=== PATIENT | female | born 1995 | race Two or more races ===

== ENCOUNTER 2017-06-18 03:31 | Emergency (ER) | payer MEDICAID, OTHER ==
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
--- NOTE | 2017-06-18 17:04 | CT ---
CT facial bones Technique: Multiple axial sections through the facial bones were obtained. Reconstructed coronal and sagittal images were obtained. Comparison: No prior study. Findings: No facial bone fracture is identified. No significant mucosal thickening seen within the sinuses. No air-fluid levels are seen within the sinuses. Soft tissue swelling seen within the right cheek and overlying the right zygomatic arch. Impression: 1. Soft tissue swelling on the right side. 2. No acute facial bone fracture is seen. Diagnostic code #2 I agree with preliminary report issued by [facility] ([facility] report finalized on 06/18/17, 5:56 AM Central Time)
--- NOTE | 2017-06-18 17:04 | CT ---
Head CT Technique: Multiple axial sections through the brain were obtained. Intravenous contrast was not utilized. Comparison: Previous head CT exam of 02/21/11. Findings: Ventricles along with basal cisterns and sulci over the convexities are within normal limits for the patient's age. No abnormal parenchymal densities are seen. No evidence of intracranial hemorrhage. No midline shift or mass effect is seen. Bone window settings were reviewed and show no significant finding within the paranasal sinuses. No acute calvarial abnormality is seen. Mild soft tissue swelling identified over the right zygomatic arch. Impression: 1. Mild soft tissue swelling as noted above. No acute intracranial abnormality is seen. Diagnostic code #2 I agree with preliminary report issued by [facility] ([facility] report finalized on 06/18/17, 5:54 AM Central Time)
== END 2017-06-18 06:23 | disposition home or self-care (01) ==
LOC: JD.ED 03:31
DX: S00.83XA Contusion of other part of head, initial encounter (principal); S80.02XA Contusion of left knee, initial encounter; S40.211A Abrasion of right shoulder, initial encounter; W17.89XA Other fall from one level to another, initial encounter
CPT/HCPCS: 70450; 70450-26; 70486; 70486-26; 99284; 99284-25

== ENCOUNTER 2018-01-09 21:49 | Emergency (ER) | payer OTHER ==
--- NOTE | 2018-01-09 22:50 | EDM.PDOC ---
ED HPI GENERAL MEDICAL PROBLEM - General Chief Complaint: Body Fluid Exposure Stated Complaint: POKED WITH NEEDLE AT WORK Time Seen by Provider: 01/09/18 22:01 Source of Information: Reports: Patient History Limitations: Reports: No Limitations - History of Present Illness INITIAL COMMENTS - FREE TEXT/NARRATIVE: The patient is a 22-year-old female who sustained a needlestick while at work. 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 The needle struck her in her left palmar surface. She did have some mild bleeding after the injury. She has no idea if the needle had been used or not. She states that the last guest who stayed at the hotel room was an elderly lady who used a walker. She doesn't know anything else about her, and she checked out already and is not available for questioning. Patient washed her finger with rubbing alcohol prior to coming in. Minimal pain. She states that she used to work as a [employer]SING [employer] and is certain that her hepatitis B vaccine is up-to-date. States that all of her vaccines are up-to-date. She is otherwise healthy. She brought the needle and and it appears to be a very small gauge insulin needle that is half inch in length. There is no blood on the needle. - Related Data Allergies Allergy/AdvReac Type Severity Reaction Status Date / Time No Known Allergies Allergy Verified 01/09/18 21:55 Home Meds: Home Meds . [No Known Home Meds] 01/09/18 [History] Past Medical History - Past Health History Medical/Surgical History: Denies Medical/Surgical History Social & Family History - Family History Family Medical History: Noncontributory - Tobacco Use Smoking Status *Q: Current Every Day Smoker Years of Tobacco use: 1 Packs/Tins Daily: 0.1 - Caffeine Use Caffeine Use: Reports: Coffee, Energy Drinks - Recreational Drug Use Recreational Drug Use: No ED ROS GENERAL - Review of Systems Review Of Systems: See Below Constitutional: Denies: Fever Respiratory: Reports: Shortness of Breath Cardiovascular: Reports: No Symptoms Endocrine: Reports: No Symptoms GI/Abdominal: Reports: No Symptoms Musculoskeletal: Reports: Hand Pain Skin: Reports: Wound Neurological: Reports: No Symptoms ED EXAM, GENERAL - Physical Exam Exam: See Below Exam Limited By: No Limitations General Appearance: Alert, WD/WN, No Apparent Distress Eye Exam: Bilateral Eye: Normal Inspection Ears: Normal External Exam Nose: Normal Inspection Throat/Mouth: Normal Inspection, Normal Oropharynx, Normal Voice Head: Atraumatic, Normocephalic Neck: Normal Inspection Respiratory/Chest: No Respiratory Distress Extremities: Other (Left hand: Tiny puncture wound on the palmar surface, no swelling or deformity or active bleeding) Neurological: Alert, Oriented, Normal Cognition, No Motor/Sensory Deficits Psychiatric: Normal Affect, Normal Mood Skin Exam: Warm, Dry, Intact, Normal Color, No Rash Course - Vital Signs Last Recorded V/S: Last Vital Signs Temp 36.8 C 01/09/18 21:55 Pulse 81 01/09/18 21:55 Resp 16 01/09/18 21:55 BP 123/82 01/09/18 21:55 Pulse Ox 100 01/09/18 21:55 - Re-Assessments/Exams Free Text/Narrative Re-Assessment/Exam: 01/10/18 01:22 This appears to be very low risk needle stick injury. The guest who checked out of that room had been gone for at least a few hours before the injury occurred so it is highly unlikely that there would've been any fresh blood on the needle. The needle was very narrow gauge in short, could only have been used for subcutaneous administration. Given description of elderly guest who used a walker, probably was an insulin administration needle. However none of this can be confirmed. Discussed risks of HIV, hepatitis C, hepatitis B transmission, all of which are extremely low risks in my professional opinion given the circumstances. Discussed risks and benefits of postexposure prophylaxis for HIV , the patient declines which I agree is a very reasonable choice. I did recommend that she has testing for HIV, hep C, and hep B surface antigen per protocol but she declined. She feels certain that she doesn't have any of these diseases, is certain that she's been fully vaccinated for hep B, and also has a needle phobia and feels that the downside of a blood draw outweighs the potential benefit. I did explain the risk, although extremely low, of her acquiring one of these infections and then not knowing what the source might of been. She understood. Continues to decline the blood draw. Provided her with walking clinic follow-up information should she change her mind. Departure - Departure Time of Disposition: 22:48 Disposition: Home, Self-Care 01 Clinical Impression: Needle stick injury - Discharge Information Instructions: Needlestick Injury, [id number] Referrals: PCP,None [Primary Care Provider] - Forms: ED Department Discharge Additional Instructions: 1. Your needle stick injury is very low risk of causing infection 2. If you change your mind about having baseline labs drawn, follow up with the walk in clinic this week. Call [phone] to schedule. Normally we would test you for HIV, hepatitis C, and also check to see that your hepatitis B vaccine status is effective. 3. Return to the ED for any increased pain, swelling, redness, or other signs of wound infection of your hand.
== END 2018-01-09 22:54 | disposition home or self-care (01) ==
LOC: JD.ED 21:49
DX: S61.432A Puncture wound without foreign body of left hand, initial encounter (principal); W46.0XXA Contact with hypodermic needle, initial encounter; Y93.89 Activity, other specified; Y92.59 Other trade areas as the place of occurrence of the external cause; F17.210 Nicotine dependence, cigarettes, uncomplicated
CPT/HCPCS: 99283

== ENCOUNTER 2018-12-22 12:51 | Emergency (ER) | payer SELFPAY ==
[2018-12-22] MEDS ORDERED: Penicillin G Benzathine 1,200,000 Units/2 ML Syringe IM ONE (14:49)
--- NOTE | 2018-12-22 14:54 | EDM.PDOC ---
ED HPI GENERAL MEDICAL PROBLEM - General Chief Complaint: ENT Problem Stated Complaint: THROAT IS SWOLLEN Time Seen by Provider: 12/22/18 14:35 Source of Information: Reports: Patient History Limitations: Reports: No Limitations - History of Present Illness INITIAL COMMENTS - FREE TEXT/NARRATIVE: 23 year old female presents for evaluation and treatment of a sore throat and odynophagia. Patient reports symptoms x 5 days. Presented to the walk-in clinic and sent to the ER for evaluation. Reports symptoms of difficulty swallowing and odynophagia. Reports lymphadenopathy. Denies any fever, cough. Reports headaches and ear pain. Has had mono x 2 times previously, states this feels different. Throat Pain Score (Numeric/FACES): 9 - Related Data Allergies Allergy/AdvReac Type Severity Reaction Status Date / Time No Known Allergies Allergy Verified 12/22/18 12:59 Home Meds: Home Meds . [No Known Home Meds] 01/09/18 [History] Past Medical History - Past Health History Medical/Surgical History: Denies Medical/Surgical History Social & Family History - Family History Family Medical History: Noncontributory - Tobacco Use Smoking Status *Q: Current Every Day Smoker Years of Tobacco use: 1 Packs/Tins Daily: 0.5 - Caffeine Use Caffeine Use: Reports: None - Recreational Drug Use Recreational Drug Use: No ED ROS ENT - Review of Systems Review Of Systems: See Below Constitutional: Reports: Malaise, Decreased Appetite. Denies: Fever HEENT: Reports: Throat Pain, Throat Swelling, Other (reports odynophagia) Respiratory: Denies: Cough GI/Abdominal: Denies: Abdominal Pain, Nausea, Vomiting ED EXAM, ENT - Physical Exam Exam: See Below Exam Limited By: No Limitations General Appearance: Alert, WD/WN, No Apparent Distress Ears: Normal External Exam, Normal Canal, Hearing Grossly Normal, Normal TMs Nose: Normal Inspection Mouth/Throat: Pharyngeal Erythema, Throat Pain, Tonsillar Erythema, Tonsillar Exudates, Tonsillar Swelling (tonsils are 4+ ), Other. No: Peritonsillar Mass, Uvular Deviation, Uvular Edema Neck: Lymphadenopathy (L), Lymphadenopathy (R) Respiratory/Chest: No Respiratory Distress, Lungs Clear, Normal Breath Sounds Cardiovascular: Normal Peripheral Pulses, Regular Rate, Rhythm, No Murmur Neurological: Alert, Oriented, Normal Cognition Psychiatric: Normal Affect, Normal Mood Skin: Warm, Dry, Normal Color Course - Vital Signs Last Recorded V/S: Last Vital Signs Temp 98.7 F 12/22/18 13:03 Pulse 97 12/22/18 13:03 Resp 16 12/22/18 13:03 BP 116/81 12/22/18 13:03 Pulse Ox 100 12/22/18 13:03 - Orders/Labs/Meds Meds: Medications Discontinued Medications Generic Name Dose Route Start Last Admin Trade Name Tim PRN Reason Stop Dose Admin Penicillin G Benzathine 1.2 millunits 12/22/18 14:49 Bicillin L-A IM 12/22/18 14:50 ONETIME ONE - Re-Assessments/Exams Free Text/Narrative Re-Assessment/Exam: 12/22/18 14:46 rapid sterp +. Will treat with IM bicillin. Note for work given, Discharge instructions as documented. Departure - Departure Time of Disposition: 14:51 Disposition: Home, Self-Care 01 Condition: Fair Clinical Impression: Strep pharyngitis - Discharge Information *PRESCRIPTION DRUG MONITORING PROGRAM REVIEWED*: No *COPY OF PRESCRIPTION DRUG MONITORING REPORT IN PATIENT MICKI: No Instructions: Pharyngitis, [id number] Referrals: PCP,None [Primary Care Provider] - Forms: ED Department Discharge, ED Return to Work/School Form Additional Instructions: strep is spread by saliva. Make sure you do not share any cups etc. Recommend boiling your toothbrush. you are contagious until you have 24 hours of antibiotic in you. recommend [id number] liquid Tylenol or Motrin as needed for fevers and pain relief. Recommend popsicles, soft food such as Jell-O, mesh goes, etc. while you are healing. Make sure you're drinking plenty of fluids. Please return to ER if your symptoms change or worsen.
== END 2018-12-22 15:15 | disposition home or self-care (01) ==
LOC: JD.ED 12:51
DX: J02.0 Streptococcal pharyngitis (principal); F17.210 Nicotine dependence, cigarettes, uncomplicated
CPT/HCPCS: 87430; 96372; 99283; J0561

== ENCOUNTER 2019-04-14 11:50 | Emergency (ER) | payer OTHER ==
[2019-04-14] MEDS ORDERED: Ondansetron 4 MG Tab.DIS PO ONE (12:22)
[2019-04-14] MEDS ORDERED: Sodium Chloride 0.9% 1,000 ML IV ONE (12:49)
[2019-04-14] MEDS ORDERED: Sodium Chloride 0.9% 10 ML Syringe FLUSH PRN (12:49)
--- NOTE | 2019-04-14 13:46 | EDM.PDOC ---
ED HPI GENERAL MEDICAL PROBLEM - General Chief Complaint: Gastrointestinal Problem Stated Complaint: CHEST PAINS Time Seen by Provider: 04/14/19 12:10 Source of Information: Reports: Patient History Limitations: Reports: No Limitations - History of Present Illness INITIAL COMMENTS - FREE TEXT/NARRATIVE: 23-year-old female sent over from the walk-in clinic for several different complaints. Patient is currently complaining of chest pain, chills, nausea, vomiting and diarrhea. She states that she can't keep anything down as she either has emesis or she has diarrhea. She denies any blood in her stool. She denies any lightheadedness, dizziness or syncope. She states that her entire chest hurts. No cough. She also reports that her arms feel like they're swollen and tingly. No pain or swelling in her legs. She describes the pain primarily in the left side of her chest and sharp and stabbing in nature. States that it is pleuritic in breathing seems to worsen the pain. Reports multiple of her coworkers have been ill. Patient works at [email or web address]. She is not on any medications or any oral contraceptives. Patient reports she has been taking [employer] herbal supplement for energy. Chest Pain Score (Numeric/FACES): 5 - Related Data Allergies Allergy/AdvReac Type Severity Reaction Status Date / Time No Known Allergies Allergy Verified 04/14/19 12:01 Home Meds: Home Meds . [No Known Home Meds] 01/09/18 [History] Past Medical History - Past Health History Medical/Surgical History: Denies Medical/Surgical History Social & Family History - Family History Family Medical History: Noncontributory - Tobacco Use Smoking Status *Q: Current Every Day Smoker Years of Tobacco use: 2 Packs/Tins Daily: 1 Second Hand Smoke Exposure: No - Caffeine Use Caffeine Use: Reports: None - Recreational Drug Use Recreational Drug Use: No ED ROS GENERAL - Review of Systems Review Of Systems: See Below Constitutional: Reports: Chills. Denies: Fever Respiratory: Reports: Pleuritic Chest Pain. Denies: Shortness of Breath Cardiovascular: Reports: Chest Pain. Denies: Lightheadedness, Syncope GI/Abdominal: Reports: Diarrhea, Nausea, Vomiting. Denies: Abdominal Pain, Hematochezia, Melena Musculoskeletal: Reports: Arm Pain Neurological: Reports: Tingling (bilateral arms). Denies: Dizziness, Syncope ED EXAM, GI/ABD - Physical Exam Exam: See Below Exam Limited By: No Limitations General Appearance: Alert, WD/WN, No Apparent Distress, Thin Ears: Normal External Exam Nose: Normal Inspection Throat/Mouth: Normal Inspection, Normal Lips, Normal Voice, No Airway Compromise Respiratory/Chest: No Respiratory Distress, Lungs Clear, Normal Breath Sounds Cardiovascular: Normal Peripheral Pulses, Regular Rate, Rhythm, No Murmur GI/Abdominal Exam: Normal Bowel Sounds, Soft, Non-Tender, No Distention Neurological: Alert, Oriented, Normal Cognition Psychiatric: Normal Affect, Normal Mood Skin Exam: Warm, Dry, Normal Color EKG INTERPRETATION EKG Date: 04/14/19 Time: 12:10 Rhythm: NSR Rate (Beats/Min): 74 [place]: Normal P-Wave: Present QRS: Normal ST-T: Normal QT: Normal EKG Interpretation Comments: NSR at 74 bpm. No acute canges. Reviewed by myself and Dr. England. Course - Vital Signs Last Recorded V/S: Last Vital Signs Temp 97.5 F 04/14/19 14:10 Pulse 64 04/14/19 14:10 Resp 18 04/14/19 14:10 BP 101/65 04/14/19 14:10 Pulse Ox 99 04/14/19 14:10 Orthostatic Blood Pressure [ 104/69 Standing] Orthostatic Blood Pressure [ 96/64 Sitting] Orthostatic Blood Pressure [ 73/59 Supine] - Orders/Labs/Meds Orders: Active Orders 24 hr Category Date Time Status EKG Documentation Completion [RC] ASDIRECTED Care 04/14/19 12:06 Active Peripheral IV Care [RC] . DIRECTED Care 04/14/19 12:49 Active Chest 2V [CR] Stat Exams 04/14/19 12:08 Taken Peripheral IV Insertion Adult [OM.PC] Routine Oth 04/14/19 12:49 Ordered EKG 12 Lead [EK] Stat Ther 04/14/19 12:06 Ordered Labs: Laboratory Tests 04/14/19 04/14/19 04/14/19 Range/Units 12:41 12:41 12:41 WBC 6.54 (3.98-10.04) K/mm3 RBC 4.87 (3.98-5.22) M/mm3 Hgb 14.8 (11.2-15.7) gm/dl Hct 45.6 H (34.1-44.9) % MCV 93.6 (79.4-94.8) fl MCH 30.4 (25.6-32.2) pg MCHC 32.5 (32.2-35.5) g/dl RDW Std Deviation 43.9 (36.4-46.3) fL Plt Count 302 (182-369) K/mm3 MPV 8.9 L (9.4-12.3) fl Neut % (Auto) 61.7 (34.0-71.1) % Lymph % (Auto) 29.8 (19.3-51.7) % Clinch % (Auto) 7.5 (4.7-12.5) % Eos % (Auto) 0.2 L (0.7-5.8) Baso % (Auto) 0.6 (0.1-1.2) % Neut # (Auto) 4.04 (1.56-6.13) K/mm3 Lymph # (Auto) 1.95 (1.18-3.74) K/mm3 Clinch # (Auto) 0.49 H (0.24-0.36) K/mm3 Eos # (Auto) 0.01 L (0.04-0.36) K/mm3 Baso # (Auto) 0.04 (0.01-0.08) K/mm3 D-Dimer, Quantitative < 0.19 L (0.19-0.50) mg/L Sodium 142 (136-145) mEq/L Potassium 3.9 (3.5-5.1) mEq/L Chloride 108 H (98-107) mEq/L Carbon Dioxide 24 (21-32) mEq/L Anion Gap 13.9 (5-15) BUN 13 (7-18) mg/dL Creatinine 0.7 (0.55-1.02) mg/dL Est Cr Clr Drug Dosing 94.32 mL/min Estimated GFR (MDRD) > 60 (>60) mL/min BUN/Creatinine Ratio 18.6 H (14-18) Glucose 93 (74-106) mg/dL Calcium 9.9 (8.5-10.1) mg/dL Magnesium 2.0 (1.8-2.4) mg/dl Total Bilirubin 0.8 (0.2-1.0) mg/dL AST 13 L (15-37) U/L ALT 24 (14-59) U/L Alkaline Phosphatase 68 (46-116) U/L Total Protein 7.9 (6.4-8.2) g/dl Albumin 4.1 (3.4-5.0) g/dl Globulin 3.8 gm/dL Albumin/Globulin Ratio 1.1 (1-2) HCG, Qual (NEGATIVE) 04/14/19 Range/Units 12:41 WBC (3.98-10.04) K/mm3 RBC (3.98-5.22) M/mm3 Hgb (11.2-15.7) gm/dl Hct (34.1-44.9) % MCV (79.4-94.8) fl MCH (25.6-32.2) pg MCHC (32.2-35.5) g/dl RDW Std Deviation (36.4-46.3) fL Plt Count (182-369) K/mm3 MPV (9.4-12.3) fl Neut % (Auto) (34.0-71.1) % Lymph % (Auto) (19.3-51.7) % Clinch % (Auto) (4.7-12.5) % Eos % (Auto) (0.7-5.8) Baso % (Auto) (0.1-1.2) % Neut # (Auto) (1.56-6.13) K/mm3 Lymph # (Auto) (1.18-3.74) K/mm3 Clinch # (Auto) (0.24-0.36) K/mm3 Eos # (Auto) (0.04-0.36) K/mm3 Baso # (Auto) (0.01-0.08) K/mm3 D-Dimer, Quantitative (0.19-0.50) mg/L Sodium (136-145) mEq/L Potassium (3.5-5.1) mEq/L Chloride (98-107) mEq/L Carbon Dioxide (21-32) mEq/L Anion Gap (5-15) BUN (7-18) mg/dL Creatinine (0.55-1.02) mg/dL Est Cr Clr Drug Dosing mL/min Estimated GFR (MDRD) (>60) mL/min BUN/Creatinine Ratio (14-18) Glucose (74-106) mg/dL Calcium (8.5-10.1) mg/dL Magnesium (1.8-2.4) mg/dl Total Bilirubin (0.2-1.0) mg/dL AST (15-37) U/L ALT (14-59) U/L Alkaline Phosphatase (46-116) U/L Total Protein (6.4-8.2) g/dl Albumin (3.4-5.0) g/dl Globulin gm/dL Albumin/Globulin Ratio (1-2) HCG, Qual Negative (NEGATIVE) Meds: Medications Discontinued Medications Generic Name Dose Route Start Last Admin Trade Name Freq PRN Reason Stop Dose Admin Sodium Chloride 1,000 mls @ 999 mls/hr 04/14/19 12:49 04/14/19 12:56 Normal Saline IV 04/14/19 13:49 999 mls/hr ONETIME ONE Administration Ondansetron HCl 4 mg 04/14/19 12:22 04/14/19 12:37 Zofran Odt PO 04/14/19 12:23 4 mg ONETIME ONE Administration Sodium Chloride 10 ml 04/14/19 12:49 04/14/19 12:56 Saline Flush FLUSH 10 ml ASDIRECTED PRN Administration Keep Vein Open - Radiology Interpretation Free Text/Narrative:: chest xray shows no acute intrathoracic process, formal radiology read pending. - Re-Assessments/Exams Free Text/Narrative Re-Assessment/Exam: 04/14/19 13:46 Patient's blood pressure was reading 60s-70s systolic on the monitor. A different cuff was selected for the patient. Her systolic blood pressure is in the 100s which clinically is more accurate. I reviewed the labs, ekg and imaging with the patient .Will discharge home. Working diagnosis viral gastroenteritis vs kramtom withdrawl. Recommend follow- up in the clinic Wednesday or if not much better. Discharge instructions as documented. Departure - Departure Time of Disposition: 13:47 Disposition: Home, Self-Care 01 Condition: Good Clinical Impression: Gastroenteritis - Discharge Information *PRESCRIPTION DRUG MONITORING PROGRAM REVIEWED*: No *COPY OF PRESCRIPTION DRUG MONITORING REPORT IN PATIENT MICKI: No Instructions: Viral Gastroenteritis, Adult, [id number] Referrals: PCP,None [Primary Care Provider] - Donita Green PA-C [Physician Electrician Chief] - Forms: ED Department Discharge, ED Return to Work/School Form Additional Instructions: Rest. Make sure you are drinking plenty of fluids. Recommend starting a probiotic, these are available OTC. Recommend stopping the kramtom. You can develop withdrawal symptoms from kramtom , these should not exceed 7 days time. Follow-up with [facility] if not much better Wednesday or next week. Recommend Donita Green or Sanjuanita Thurman at the [facility], call to schedule with one of these providers. Please return to the ER should your symptoms change or worsen. - My Orders Last 24 Hours: My Active Orders 04/14/19 12:06 EKG Documentation Completion [RC] ASDIRECTED EKG 12 Lead [EK] Stat 04/14/19 12:08 Chest 2V [CR] Stat 04/14/19 12:49 Peripheral IV Care [RC] . DIRECTED Peripheral IV Insertion Adult [OM.PC] Routine - Assessment/Plan Last 24 Hours: My Active Orders 04/14/19 12:06 EKG Documentation Completion [RC] ASDIRECTED EKG 12 Lead [EK] Stat 04/14/19 12:08 Chest 2V [CR] Stat 04/14/19 12:49 Peripheral IV Care [RC] . DIRECTED Peripheral IV Insertion Adult [OM.PC] Routine
--- NOTE | 2019-04-17 07:10 | CR ---
Chest: Two views of the chest were obtained. Comparison: Prior chest x-ray of 07/24/12. Heart size and mediastinum are normal. Lungs are clear with no acute parenchymal change. Bony structures are unremarkable for the patient's age. Impression: 1. Nothing acute is seen on two-view chest x-ray. Diagnostic code #1
== END 2019-04-14 14:10 | disposition home or self-care (01) ==
LOC: JD.ED 11:50
DX: K52.9 Noninfective gastroenteritis and colitis, unspecified (principal); F17.210 Nicotine dependence, cigarettes, uncomplicated
CPT/HCPCS: 36415; 71046; 80053; 83735; 84703; 85025; 85379; 93005; 96360; 99285; A9270; J7040

== ENCOUNTER 2019-12-03 09:15 | Emergency (ER) | payer SELFPAY ==
--- NOTE | 2019-12-03 09:29 | EDM.PDOC ---
ED HPI GENERAL MEDICAL PROBLEM - General Chief Complaint: Abdominal Pain Stated Complaint: PAIN IN STOMACH Time Seen by Provider: 12/03/19 09:25 - History of Present Illness INITIAL COMMENTS - FREE TEXT/NARRATIVE: 24-year-old female presents the emergency room with abdominal pain. The patient has been having this pain on and on and off basis for the last couple of weeks. She had a very light period last week, only lasted 1 day which is not normal for her. She is not had any nausea or vomiting no constipation no diarrhea. No fevers but occasionally she is chilled intermittently does not seem to be related to the pain. Pain is located in her lower abdomen. She cannot recall what makes it better or worse. Patient denies any past pregnancies and she does not believe she is at this time. However, is not on anything for control. No significant medical problems. Lower Abdomen Pain Score (Numeric/FACES): 5 - Related Data Allergies Allergy/AdvReac Type Severity Reaction Status Date / Time No Known Allergies Allergy Verified 12/03/19 09:25 Home Meds: Home Meds . [No Known Home Meds] 01/09/18 [History] Past Medical History - Past Health History Medical/Surgical History: Denies Medical/Surgical History Social & Family History - Family History Family Medical History: Noncontributory - Caffeine Use Caffeine Use: Reports: None ED ROS GENERAL - Review of Systems Review Of Systems: See Below Constitutional: Reports: Chills. Denies: No Symptoms, Fever, Malaise, Weakness , Fatigue HEENT: Reports: No Symptoms Respiratory: Reports: No Symptoms Cardiovascular: Reports: No Symptoms GI/Abdominal: Reports: Abdominal Pain. Denies: Constipation, Diarrhea, Nausea, Vomiting Musculoskeletal: Reports: No Symptoms ED EXAM, GI/ABD - Physical Exam Exam: See Below Exam Limited By: No Limitations General Appearance: Alert, No Apparent Distress Head: Atraumatic, Normocephalic Neck: Normal Inspection, Supple, Non-Tender, Full Range of Motion Respiratory/Chest: No Respiratory Distress, Lungs Clear, Normal Breath Sounds Cardiovascular: Regular Rate, Rhythm, No Edema, No Murmur GI/Abdominal Exam: Normal Bowel Sounds, Soft, Tender (Vague lower abdominal discomfort with palpation. No localizing on exam.). No: Distended, Guarding, Rigid, Rebound Back Exam: Normal Inspection. No: CVA Tenderness (L), CVA Tenderness (R) Course - Vital Signs Last Recorded V/S: Last Vital Signs Temp 36.9 C 12/03/19 09:25 Pulse 87 12/03/19 09:25 Resp 13 12/03/19 09:25 BP 128/79 12/03/19 09:25 Pulse Ox 100 12/03/19 09:25 - Orders/Labs/Meds Labs: Laboratory Tests 12/03/19 12/03/19 12/03/19 Range/Units 09:40 09:40 09:45 WBC 18.72 H (3.98-10.04) K/mm3 RBC 4.54 (3.98-5.22) M/mm3 Hgb 14.5 (11.2-15.7) gm/dl Hct 44.0 (34.1-44.9) % MCV 96.9 H D (79.4-94.8) fl MCH 31.9 (25.6-32.2) pg MCHC 33.0 (32.2-35.5) g/dl RDW Std Deviation 45.8 (36.4-46.3) fL Plt Count 332 (182-369) K/mm3 MPV 8.5 L (9.4-12.3) fl Neut % (Auto) 82.9 H (34.0-71.1) % Lymph % (Auto) 11.2 L (19.3-51.7) % [place] % (Auto) 5.3 (4.7-12.5) % Eos % (Auto) 0.1 L (0.7-5.8) Baso % (Auto) 0.2 (0.1-1.2) % Neut # (Auto) 15.52 H (1.56-6.13) K/mm3 Lymph # (Auto) 2.09 (1.18-3.74) K/mm3 [place] # (Auto) 1.00 H (0.24-0.36) K/mm3 Eos # (Auto) 0.02 L (0.04-0.36) K/mm3 Baso # (Auto) 0.04 (0.01-0.08) K/mm3 Manual Slide Review Normal smear Sodium (136-145) mEq/L Potassium (3.5-5.1) mEq/L Chloride (98-107) mEq/L Carbon Dioxide (21-32) mEq/L Anion Gap (5-15) BUN (7-18) mg/dL Creatinine (0.55-1.02) mg/dL Est Cr Clr Drug Dosing mL/min Estimated GFR (MDRD) (>60) mL/min BUN/Creatinine Ratio (14-18) Glucose (74-106) mg/dL Calcium (8.5-10.1) mg/dL Total Bilirubin (0.2-1.0) mg/dL AST (15-37) U/L ALT (14-59) U/L Alkaline Phosphatase (46-116) U/L Total Protein (6.4-8.2) g/dl Albumin (3.4-5.0) g/dl Globulin gm/dL Albumin/Globulin Ratio (1-2) Urine Color Yellow (Yellow) Urine Appearance Clear (Clear) Urine pH 6.0 (5.0-8.0) Ur Specific Lipan > or = 1.030 (1.005-1.030) Urine Protein Negative (Negative) Urine Glucose (UA) Negative (Negative) Urine Ketones 2+ H (Negative) Urine Occult Blood Negative (Negative) Urine Nitrite Negative (Negative) Urine Bilirubin Negative (Negative) Urine Urobilinogen 0.2 (0.2-1.0) Ur Leukocyte Esterase Negative (Negative) Urine HCG, Qual Negative (NEGATIVE) 12/03/19 Range/Units 09:45 WBC (3.98-10.04) K/mm3 RBC (3.98-5.22) M/mm3 Hgb (11.2-15.7) gm/dl Hct (34.1-44.9) % MCV (79.4-94.8) fl MCH (25.6-32.2) pg MCHC (32.2-35.5) g/dl RDW Std Deviation (36.4-46.3) fL Plt Count (182-369) K/mm3 MPV (9.4-12.3) fl Neut % (Auto) (34.0-71.1) % Lymph % (Auto) (19.3-51.7) % [place] % (Auto) (4.7-12.5) % Eos % (Auto) (0.7-5.8) Baso % (Auto) (0.1-1.2) % Neut # (Auto) (1.56-6.13) K/mm3 Lymph # (Auto) (1.18-3.74) K/mm3 [place] # (Auto) (0.24-0.36) K/mm3 Eos # (Auto) (0.04-0.36) K/mm3 Baso # (Auto) (0.01-0.08) K/mm3 Manual Slide Review Sodium 142 (136-145) mEq/L Potassium 3.6 (3.5-5.1) mEq/L Chloride 102 (98-107) mEq/L Carbon Dioxide 25 (21-32) mEq/L Anion Gap 18.6 H (5-15) BUN 7 (7-18) mg/dL Creatinine 0.7 (0.55-1.02) mg/dL Est Cr Clr Drug Dosing 93.51 mL/min Estimated GFR (MDRD) > 60 (>60) mL/min BUN/Creatinine Ratio 10.0 L (14-18) Glucose 85 (74-106) mg/dL Calcium 9.5 (8.5-10.1) mg/dL Total Bilirubin 0.7 (0.2-1.0) mg/dL AST 16 (15-37) U/L ALT 27 (14-59) U/L Alkaline Phosphatase 62 (46-116) U/L Total Protein 8.4 H (6.4-8.2) g/dl Albumin 4.4 (3.4-5.0) g/dl Globulin 4.0 gm/dL Albumin/Globulin Ratio 1.1 (1-2) Urine Color (Yellow) Urine Appearance (Clear) Urine pH (5.0-8.0) Ur Specific Lipan (1.005-1.030) Urine Protein (Negative) Urine Glucose (UA) (Negative) Urine Ketones (Negative) Urine Occult Blood (Negative) Urine Nitrite (Negative) Urine Bilirubin (Negative) Urine Urobilinogen (0.2-1.0) Ur Leukocyte Esterase (Negative) Urine HCG, Qual (NEGATIVE) - Re-Assessments/Exams Free Text/Narrative Re-Assessment/Exam: 12/03/19 12:02 Laboratory evaluation shows some moderate dehydration and she has a moderate increase in her WBC count. At this point the patient only has pain for poking on her abdomen or if she moves the wrong way if she is resting she is pain- free. Repeat abdominal exam shows good bowel sounds her pain is more on the left side. No rigidity rebound or guarding noted. I discussed options with the patient including CAT scanning. Outpatient ultrasound examination as she does have a history of ovarian cysts. And at this point the patient agrees to go home we will not CAT scan her at this time. Overall the patient feels like she will do fine at home and agrees with not further evaluation at this time. She agrees to return in 24 hours if not better sooner if getting worse. She agrees to drink lots of fluids. And she will follow-up with an outpatient ultrasound and follow-up with her regular provider for the results of this the patient did see Dr. Delgado in the past for last ovarian cyst. Departure - Departure Time of Disposition: 12:07 Disposition: Home, Self-Care 01 Clinical Impression: Lower abdominal pain - Discharge Information Referrals: PCP,None [Primary Care Provider] - Forms: ED Department Discharge, ED Return to Work/School Form Additional Instructions: Return to the emergency room with any questions problems or worsening symptoms. Return in 24 hours if not better, sooner if getting worse. Push lots of fluids so you are voiding every hour and a half while awake. Follow-up with Dr. Delgado, or establish with a regular provider, a day or 2 after you have the ultrasound done Tylenol as needed for discomfort. Sepsis Event Note - Focused Exam Vital Signs: Vital Signs Temp Pulse Resp BP Pulse Ox 12/03/19 09:25 36.9 C 87 13 128/79 100 Date Exam was Performed: 12/03/19 Time Exam was Performed: 12:02
== END 2019-12-03 12:37 | disposition home or self-care (01) ==
LOC: JD.ED 09:15
DX: R10.30 Lower abdominal pain, unspecified (principal)
CPT/HCPCS: 36415; 80053; 81003; 81025; 85025; 99282; 99284